=== PATIENT | male | born 1970 | race Caucasian/White ===

== ENCOUNTER 2017-03-05 13:30 | Emergency (ER) | payer OTHER ==
[~2017-03-05] VITALS: Ht 180.3 cm; Wt 77.1 kg
[~2017-03-05 13:30] MED LIST: GLUCOPHAGE500 MG PO; LANTUS 10100 UNITS/ SC; LANTUS100 UNIT/1 SQ; LASIX2 MG/1 ML IV; NOVOLIN 70100 UNIT/1 SQ; NOVOLOG100 UNIT/2 SQ; PERCOCET 5/31 TABLET PO; VALIUM2 MG PO; ZESTRIL,PRINIVI10 MG PO; [UNRECOGNIZED DRUG - REMARK]
[2017-03-05] MEDS ORDERED: NAPROSYN500 MG PO (15:01)
[2017-03-05] MEDS ORDERED: LIDODERM 5% P1 PATCH TD (15:01)
[2017-03-05 15:07] VITALS: BP 167/95
== END 2017-03-05 15:09 | disposition home or self-care (01) ==
LOC: EME 13:30
DX: Z04.1 Encounter for examination and observation following transport accident (principal); M54.9 Dorsalgia, unspecified; G89.29 Other chronic pain; E11.9 Type 2 diabetes mellitus without complications; Z79.4 Long term (current) use of insulin; F17.200 Nicotine dependence, unspecified, uncomplicated
CPT/HCPCS: 99281; 99284; J3010

== ENCOUNTER → 2017-10-28 | Outpatient (CLI) | payer OTHER ==
[~2017-10-28] MED LIST changes: +FUROSEMIDE20 MG PO; +HUMALOG100 UNIT/1 SC; +HYDROCODON-ACE1 EAC9 PO; +LIDODERM 5% P1 PATCH TD; +LISINOPRIL40 MG PO; +NAPROSYN500 MG PO
== END | disposition home or self-care (01) ==
LOC: NUC 09:30
DX: Z01.810 Encounter for preprocedural cardiovascular examination (principal)
CPT/HCPCS: 78452; 93017; A9500; J2785

== ENCOUNTER 2017-11-02 21:50 | Inpatient (IN) | payer OTHER ==
[~2017-11-02] VITALS: Ht 175.3 cm; Wt 75.7 kg
[2017-11-03 09:31] VITALS: BP 188/84
[2017-11-03 10:32] LABS: GLUCOSE 406 mg/dL (70-99)
[2017-11-03 11:37] LABS: POINT-OF-CARE METER ID UU14174212
[2017-11-03 11:37] LABS: POINT-OF-CARE METER ID UU14174212
== END 2017-11-03 11:42 | disposition left against medical advice (07) | DRG 552 ==
LOC: 2SOUTH → CANRESERV 21:50 → ENRESERV 21:50 → 2SOUTH 11-03 08:34
PROVIDERS: Neurological Surgery
DX: M43.16 Spondylolisthesis, lumbar region (principal); Z53.09 Procedure and treatment not carried out because of other contraindication; E10.65 Type 1 diabetes mellitus with hyperglycemia; M51.26 Other intervertebral disc displacement, lumbar region; E10.42 Type 1 diabetes mellitus with diabetic polyneuropathy; E10.51 Type 1 diabetes mellitus with diabetic peripheral angiopathy without gangrene; F17.210 Nicotine dependence, cigarettes, uncomplicated; Z83.3 Family history of diabetes mellitus; Z82.49 Family history of ischemic heart disease and other diseases of the circulatory system
CPT/HCPCS: 36415; 80048; 82948; 84999; 85025; 86850; 86900; 86901; J0330; J0690; J3010; S0020

== ENCOUNTER 2018-01-05 09:00 | Emergency (ER) | payer OTHER ==
[~2018-01-05] VITALS: Ht 180.3 cm; Wt 83.0 kg
[2018-01-05 09:48] LABS: HEMOGLOBIN 14.4 G/DL (12.5-16.6); MCH 30.7 PG (29.0-34.0); MCHC 33.5 G/DL (30.0-36.0); MCV 91.7 FL (86-99); PLATELET COUNT 277 K/uL (156-360); RBC DIS.WIDTH-CV 13.4 % (11.8-14.6); RBC DIS.WIDTH-SD 44.7 % (39-53); RED BLOOD COUNT 4.69 M/uL (4.00-5.50); WHITE BLOOD COUNT 9.8 K/uL (4.1-10.2)
[2018-01-05 09:55] LABS: CHLORIDE 103 mEq/L (99-109); POTASSIUM 5.8 mEq/L (3.7-5.4); SODIUM 139 mEq/L (136-147)
[2018-01-05 09:57] LABS: GLUCOSE 205 mg/dL (70-99)
[2018-01-05 10:01] LABS: CREATININE 1.1 mg/dL (0.6-1.3); GFR ESTIMATE (CALCULATED) > 59 mL/min/ (58.99-99999)
[2018-01-05 10:02] LABS: UREA NITROGEN (BUN) 17 mg/dL (9-23)
[2018-01-05 11:47] VITALS: BP 173/92
== END 2018-01-05 11:47 | disposition home or self-care (01) ==
LOC: EME 09:00
PROVIDERS: Emergency Medicine
DX: E11.649 Type 2 diabetes mellitus with hypoglycemia without coma (principal); Z79.4 Long term (current) use of insulin; E03.9 Hypothyroidism, unspecified; I10 Essential (primary) hypertension; F17.200 Nicotine dependence, unspecified, uncomplicated
CPT/HCPCS: 80048; 82948; 85027; 99281; 99285